=== PATIENT | female | born 1955 | race Caucasian/White ===

== ENCOUNTER 2017-01-19 12:08 | Emergency (ER) | payer MEDICAID ==
--- NOTE | ~2017-01-19 | CR63 ---
[facility] A Service of [facility] RADIOLOGY TEXT RESULTS PATIENT: MURALI SPEARS LOCATION: SED : 59 UNIT #: [id number] AGE: [address]: Alyce Deleon SEX: F ORDER DR: [id number] [address] [address] [id number] MR#: [id number] Acc #: [id number] NAME: MURALI SPEARS. : 1955 SEX: F STUDY DATE/TIME: 01/19/2017 12:25 UNIT: SED ROOM: STUDY DESCRIPTION: CR Chest 2 View Attending Physician: Alyce Deleon P.A.-C. Ordering Physician: Alyce Deleon P.A.-C. Primary Care Physician: No Primary Care Physician MEDICAL IMAGING REPORT This report is preliminary unless electronic signature is present. EXAM Chest 2 views 01/19/2017 1225 hours CLINICAL HISTORY 61-year-old with history of emphysema complaining of sinus congestion and cough for 1 week. COMPARISON 03/29/2016 FINDINGS Upright PA and lateral views of the chest demonstrate normal heart size. Mediastinal, hilar and aortic contours are normal. The lungs are well expanded. There is mild pulmonary venous distension without edema, effusion, or pneumothorax. IMPRESSION 1. Normal heart size with mild pulmonary vascular prominence but no definite edema, pneumonia, or effusion seen. Dictated by... Sophie Mejia M.D. THIS IS AN ELECTRONICALLY VERIFIED REPORT Sophie Mejia M.D. at 01/19/2017 7:19 PM CHRIS/verito TD: 01/19/2017 14:28 JOB #: [id number] MEDICAL IMAGING REPORT [facility] A Service [facility] RADIOLOGY TEXT RESULTS PATIENT: MURALI SPEARS LOCATION: SED : 59 UNIT #: [id number] AGE: [address]: Alyce Deleon SEX: F ORDER DR: Page 1 of 1
[~2017-01-19 12:08] MED LIST: ALBUTEROL MININEB NEB; ALBUTEROL17 GM INH; AMOXICILLIN PO; AMOXICILLIN500 M1 PO; AUGMENTIN875 M1 PO; BENZONATATE PO; BENZONATATE200 M1 PO; COMBIVENT U/D3 M2 INH; HUMIBID-LA600 MG PO; IBUPROFEN800 MG PO; LEVAQUIN750 M1 PO; NO MEDICATIONS; ORUDIS75 M1 DOB; PEN-VEE K PO; PREDNISONE PO; PREDNISONE50 MG PO; PRILOSEC20 MG PO; SYMBICORT INH
== END 2017-01-19 13:04 | disposition home or self-care (01) ==
LOC: CED 12:08 → SED 12:08
DX: J20.9 Acute bronchitis, unspecified (principal); J01.00 Acute maxillary sinusitis, unspecified; I10 Essential (primary) hypertension; J44.9 Chronic obstructive pulmonary disease, unspecified; F17.210 Nicotine dependence, cigarettes, uncomplicated; Z90.49 Acquired absence of other specified parts of digestive tract
CPT/HCPCS: 71020; 94640; 99283

== ENCOUNTER 2017-03-11 18:50 | Emergency (ER) | payer MEDICAID ==
--- NOTE | ~2017-03-11 | CR63 ---
[facility] A Service of [facility] RADIOLOGY TEXT RESULTS PATIENT: MURALI SPEARS LOCATION: SED : 59 UNIT #: [id number] AGE: [address]: Joseph Barraza PAC SEX: F ORDER DR: [id number] [address] [address] [id number] E MR#: [id number] Acc #: [id number] NAME: MURALI SPEARS. : 1955 SEX: F STUDY DATE/TIME: 03/11/2017 19:31 UNIT: SED ROOM: STUDY DESCRIPTION: CR Chest 2 View Attending Physician: Joseph Barraza P.A.-C. Ordering Physician: Joseph Barraza P.A.-C. Primary Care Physician: Primary Care Physician No MEDICAL IMAGING REPORT This report is preliminary unless electronic signature is present. EXAM Two-view chest HISTORY Cough and congestion for 4 days. COMPARISON 01/19/2017 FINDINGS 2 views of the chest demonstrates subtle parenchymal opacity left mid lung zone and also along the right hemidiaphragm could represent developing infiltrates. No dense consolidation or sizeable effusions. Heart, mediastinum, great vessels and bony thorax unremarkable. Mild pulmonary vascular congestion. Osseous structures unremarkable. IMPRESSION Questionable patchy infiltrate along the right hemidiaphragm and also within the left mid lung zone. These could represent areas of early airspace disease. Dictated by... Martine Mathew M.D. THIS IS AN ELECTRONICALLY VERIFIED REPORT Martine Mathew M.D. at 03/12/2017 7:37 PM Ailin TD: 03/12/2017 17:11 JOB #: [id number] MEDICAL IMAGING REPORT [facility] A Service [facility] RADIOLOGY TEXT RESULTS PATIENT: MURALI SPEARS LOCATION: SED : 59 UNIT #: [id number] AGE: [address]: Joseph Barraza SEX: F ORDER DR: Page 1 of 1
== END 2017-03-11 20:02 | disposition home or self-care (01) ==
LOC: SED 18:50
DX: J44.1 Chronic obstructive pulmonary disease with (acute) exacerbation (principal); J18.9 Pneumonia, unspecified organism; I10 Essential (primary) hypertension; F17.210 Nicotine dependence, cigarettes, uncomplicated; Z79.899 Other long term (current) drug therapy
CPT/HCPCS: 71020; 94640; 99285